=== PATIENT | female | born 1990 | race Caucasian/White ===

== ENCOUNTER 2016-04-16 22:35 | Inpatient (IN) | payer OTHER ==
[~2016-04-16] VITALS: Ht 160 cm; Wt 84.4 kg
[~2016-04-16 22:35] MED LIST: IBUPROFEN800 MG PO; MIRENA52 MG; MOTRIN800 MG PO; MULTIVITAMIN1 TAB PO; PERCOCET 325 MG1 TA2 PO; TYLENOL #31 TAB PO
--- NOTE | 2016-04-17 00:11 | History & Physical ---
General Information and HPI MD Statement: I have seen and personally examined NATAN LAL and documented this H&P. The patient is a 26 year old female at37 [] weeks and [3 ] days gestation who presented with a chief complaint of rupture of membranes. Patient had a previous section she had sign paperwork and Dr. Mcmullen office unstained risks those risks were reviewed reviewed with her including infection rupture of the uterus bleeding increased morbidity transfusion and . Patient also had a previous macrosomic and discussed with her the risks of a and vaginal including Erb's palsy shoulder dystocia and infant . Patient has signed her consents she denies fever headache edema or bleeding[]. History of Present Illness: 25-year-old 3 para 1011 at at 37-3/7 weeks gestation with a complaint of some contractions earlier this evening with rupture of membranes patient is highly motivated for BP understands the risks she presents to the childbirth center at 4 cm and 90%. 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 No Contractions: q 6 minutes Patient for Induction? No Labs Blood Type & Rh: A+ Antibody Screen: NEG Hct/Hgb & Platelets #1: Hct/Hgb & Platelets #2: Rubella: IMMUNE VDRL #1: NR VDRL #2: NR HbsAg: NEG NEG HIV #1: NEG HIV #2 NEG 1 Hr PG: PT STATES NL Group B Strep: NEG Initial Ultrasound: NL Anatomy Ultrasound: NL Genetic Testing: NL Assessment/Plan As Ranked By This Provider Problem List: 1. Core Measures/Miscellaneous Venous Thromboembolism VTE Risk Factors: / VTE Contraindications: No Contraindications VTE Prophylaxis Ordered Inpt: Mech & Pharm VTE Diagnosis: No Beta Judith Is Beta Judith a Home Med? No Antibiotics Is Patient on Antibiotics? No Attending MD Review Statement Attending Statement Attending MD Statement: examined this patient
[2016-04-17 00:42] LABS: ABSOLUTE BASOPHIL COUNT 0 /CUMM (0.0-0.2); ABSOLUTE EOSINOPHIL COUNT 0 /CUMM (0.0-0.7); ABSOLUTE GRANULOCYTE CT 8.4 /CUMM (1.4-6.5); ABSOLUTE LYMPH COUNT 2.5 /CUMM (1.2-3.4); ABSOLUTE MONOCYTE COUNT 0.7 /CUMM (0.10-0.60); BASOPHIL % 0.2 % (0.0-2.0); EOSINOPHIL % 0.4 % (0-5); HEMATOCRIT 33.5 % (37-47); MEAN CORPUSCULAR HGB 29.8 PG (27.0-31.0); MEAN CORPUSCULAR VOLUME 87.7 FL (81.0-99.0); MEAN PLATELET VOLUME 9.1 FL (7.4-10.4); PLATELET COUNT 274 /CUMM (130-400); RBC DISTRIBUTION WIDTH 13.4 % (11.5-14.5); RED BLOOD CELL CT 3.82 /CUMM (4.20-5.40); WHITE BLOOD CELL COUNT 11.7 /CUMM (4.8-10.8)
--- NOTE | 2016-04-17 07:26 | PN- Obstetrical ---
Subjective Subjective: O COMPLAINTS Objective Last 24 Hrs of Vital Signs/I&O Intake & Output 04/17 0800 04/17 0000 04/16 1600 Intake Total Output Total Balance Patient 186 lb Weight Physical Exam: PALE WF F W pale white female with glassesTH GLASSES HEENT PERRLA EOMI ABD SOFT 3700 Obstetric Exam Dilation (cm): 4 Effacement (%): 90 Station: 0 Membranes: SROM Fluid: clear Multiple Gestation? No Contractions: NONE Assessment/Plan Assessment/Plan ASSESS FAILED PINKY PLAN C/S ABX
--- NOTE | 2016-04-17 09:31 | Operative Report ---
Operative/Inv Procedure Report Surgery Date: 04/17/16 Name of Procedure: Repeat low flap transverse section via Pfannenstiel skin incision Pre-Operative Diagnosis: Failed trial of labor term rupture of membranes previous section Post-Operative Diagnosis: Same Estimated Blood Loss: 500 Surgeon/Surgical Corsetier: Lena Gaitan M.D. and Lynda Diallo D.O. Anesthesia: block Operative/Procedure Note Note: Seasonal patient was taken the operating room placed on position after adequate testing for surgery for anesthesia by pinprick patient was placed in supine position of Miles was placed the abdomen was prepped and draped so fashion through an old Pfannenstiel skin incision skin was cut was carried down to rectus fascia which was cut in curvilinear fashion I direction peritoneal cavity was entered high into the abdomen low blade the Edmondson was placed and lower and incision the visceral peritoneum of the uterus was dissected anteriorly bladder flap was developed the was delivered over the abdominal wall after on since removed from the field patient tolerated that well was doubly clamped and cut after on the cord was reduced placenta was delivered manually the uterus was wiped clean with 2 wet dry last insurance free of adherent membranes was oversewn running locking suture was indicated interrupted [id number] until hemostatic. Uterus was returned to abdominal cavity irrigated close amounts warm sounds are clear peritoneum was approximated 0 the fascia was reprocessed and to continue sutures #1 skin was approximated after the subcutaneous tenderness tissues Bovie coagulated sandra were used on skin closure sterile dressing was placed at the end the case the counts correct urine was clear mother and infant were transferred recovery room awake alert
[2016-04-18 08:48] LABS: ABSOLUTE BASOPHIL COUNT 0 /CUMM (0.0-0.2); ABSOLUTE EOSINOPHIL COUNT 0.2 /CUMM (0.0-0.7); ABSOLUTE GRANULOCYTE CT 6.5 /CUMM (1.4-6.5); ABSOLUTE LYMPH COUNT 2.1 /CUMM (1.2-3.4); ABSOLUTE MONOCYTE COUNT 0.6 /CUMM (0.10-0.60); BASOPHIL % 0.3 % (0.0-2.0); GRANULOCYTE % 69.3 % (42.2-75.2); HEMATOCRIT 32.7 % (37-47); MEAN CORPUSCULAR HGB 29.7 PG (27.0-31.0); MEAN CORPUSCULAR HGB CONC 33.8 G/DL (33.0-37.0); MEAN CORPUSCULAR VOLUME 87.8 FL (81.0-99.0); MEAN PLATELET VOLUME 9.2 FL (7.4-10.4); PLATELET COUNT 229 /CUMM (130-400); RBC DISTRIBUTION WIDTH 13.7 % (11.5-14.5); RED BLOOD CELL CT 3.73 /CUMM (4.20-5.40); WHITE BLOOD CELL COUNT 9.4 /CUMM (4.8-10.8)
--- NOTE | 2016-04-18 18:21 | PN- Post Delivery/GYN ---
Subjective Subjective: o c/o Review of Systems: neg Objective Last 24 Hrs of Vital Signs/I&O vss Physical Exam: incision c/d/i ext nt Assessment/Plan Assessment/Plan s/p rpt c/s pod1 stable cpm Problem List: 1.
[2016-04-20] MEDS ORDERED: IBUPROFEN800 M1 PO (08:28)
[2016-04-20] MEDS ORDERED: DOCUSATE SODIU100 M3 PO (08:28)
[2016-04-20] MEDS ORDERED: PERCOCET 5-3251 EACH PO (08:28)
--- NOTE | 2016-06-08 13:33 | Surgical Discharge Summary ---
Visit Information Visit Dates Admission Date: 04/16/16 Discharge Date: 04/20/16 History of Present Illness Chief Complaint: Repeat Medical History Isolation History: Standard Surgical History Pertinent Surgical History: Psychosocial History What is Your Primary Language? Irish Review of Systems: Negative Hospital Course Course Attending Physician: ZACK FITZGERALD MD Primary Care Physician: MARILUZ JIMENEZ Hospital Course: The patient presented with ruptured membranes and went for a repeat section without complication she was sent to recovery in good condition. Postoperative day #1 her Miles was discontinued her diet was advanced and her and activity was increased. Her H&H returned stable and she was afebrile. Postoperative day #2 the patient continued to do well. She was ambulating voiding and tolerating a regular diet. On postoperative day #3 the patient was stable and discharged home. Allergies: Coded Allergies: Sulfa (Sulfonamide Antibiotics) (Intermediate, RASH 04/17/16) hydromorphone (From Dilaudid) (Intermediate, RASH 04/17/16) Disposition Summary Disposition Principal Diagnosis: Gen. rupture of membranes with previous Additional Diagnosis: Dispose repeat Discharge Disposition: home or self care Discharge Instructions General Discharge Information Code Status: Full Code Patient's Diet: Regular Patient's Activity: Pelvic rest with weight restrictions Follow-Up Instructions/Appts: 1 week incision check with Dr. Fitzgerald Medications at Discharge Discharge Medications: Stop taking the following medications: Levonorgestrel (Mirena) 20 MCG/24 HOUR (5 YEARS) IUD Tylenol With Codeine (Tylenol With Codeine #3 Tablet) 300 MG-30 MG TABLET ORAL Q6H as needed for PAIN Qty = 12 Ibuprofen (Motrin) 800 MG TAB ORAL THREE TIMES DAILY as needed for PAIN Qty = 30 Continue taking these medications: Multivitamin (Multiple Vitamins) 1 EACH TABLET 1 Tablet ORAL DAILY Comments: PER PT Start taking the following new medications: Ibuprofen (Ibuprofen) 800 MG TABLET 800 Milligram ORAL EVERY SIX HOURS NEEDED as needed for UTERINE CRAMPING Qty = 30 No Refills Comments: Last Taken:04/20/16 Time:0730 Oxycodone HCl/Acetaminophen (Percocet 5-325 MG Tablet) 5 MG-325 MG TABLET 1 Tablet ORAL EVERY 4 HOURS NEEDED as needed for PAIN SCALE 4-6 (MODERATE ) Qty = 24 No Refills Comments: Last Taken:04/20/16 Time:0730 Docusate Sodium (Docusate Sodium) 100 MG CAPSULE 100 Milligram ORAL AT BEDTIME as needed for STOOL SOFTENER Qty = 60 No Refills
== END 2016-04-20 09:34 | DRG 540 ==
LOC: CBCO 22:35 → GNO 23:20
PROVIDERS: Specialist; ADMIT Obstetrics & Gynecology
PROC: 10D00Z1 Extraction of Products of Conception, Low, Open Approach (ICD-10-PCS; principal; 2016-04-17)
DX: O34.211 Maternal care for low transverse scar from previous cesarean delivery (principal); N85.8 Other specified noninflammatory disorders of uterus; Z3A.37 37 weeks gestation of pregnancy; Z37.0 Single live birth
CPT/HCPCS: GNOP; GNOS; 36415; 81001; 84112; 87086; J0690; J1650; J1885; J7120